=== PATIENT | female | born 1970 | race Caucasian/White ===

== ENCOUNTER → 2019-03-31 | Outpatient (CLI) | payer BC ==
[2015-08-01 10:27] VITALS: BMI 32.0
[~2019-03-31] MED LIST: ALB18R INH; ALB6.7R INH; BUDE10.2 IH; DOCU-416 PO; DOCU240C67 PO; FLUT16SP20 NS; GUAI600T57 PO; IBUP800T37 PO; LEVO50TA80 PO; LORA-629 PO; MULT1CAP59 PO; OXYC-865 PO; PER PO
--- NOTE | 2019-04-03 11:15 | RADIOLOGY IMAGING REPORT ---
FAC[facility] PATIENT NAME: JARED POWELL : [id number] MR: [id number] V: [id number] EXAM DATE: [id number] ORDERING PHYSICIAN: LEEANN DUMONT TECHNOLOGIST: Adriana Thomson PROCEDURE: BILATERAL DIGITAL SCREENING MAMMOGRAM WITH CAD ASSISTED INTERPRETATION & 3D TOMOSYNTHESIS. REASON FOR STUDY: Screening. FAMILY HISTORY OF BREAST CANCER: None. BREAST PROCEDURES/TREATMENTS: Benign Ultrasound guided biopsy of the Left breast & benign lumpectomy of the Left breast. COMPARISON: 04/14/17, 04/09/16, 10/03/15, 08/28/15, 07/08/15. VIEWS OBTAINED: Bilateral 2D & 3D full field CC & MLO projections. BREAST DENSITY: The breasts are heterogeneously dense which can obscure small masses. MAMMOGRAM FINDINGS: The parenchymal pattern has remained stable allowing for difference in mammographic technique & patient positioning. There is a biopsy clip in the approximate 3 o'clock position of the Left breast. IMPRESSION: BIRADS 2: Benign finding. DIAGNOSTIC CATEGORY 2--BENIGN FINDING. RECOMMENDATIONS: ROUTINE MAMMOGRAM AND CLINICAL EVALUATION. Dictated by: Sarah Barton M.D. on 03/31/2019 at 15:56 Transcribed by: GLORIA on 04/03/2019 at 8:27 Approved by: Sarah Barton M.D. on 04/03/2019 at 11:10 [facility]
== END ==
LOC: MAMO 07:08
PROVIDERS: ATTEND Family Medicine
DX: Z12.31 Encounter for screening mammogram for malignant neoplasm of breast (principal)
CPT/HCPCS: 77063; 77067